=== PATIENT | male | born 1995 | race Caucasian/White ===

== ENCOUNTER 2018-04-30 16:10 | Emergency (ER) | payer BC ==
[2018-04-30 17:08] LABS: Absolute Lymphocytes (CBC) 3.3 K/uL (0.7-4.9); Absolute Monocytes 0.9 K/uL (0.1-1.3); Absolute Neutrophil 5.9 K/uL (1.8-8.0); Basophils % 0.5 % (0-1.3); Eosinophils % 1.2 % (0-4.4); Hematocrit 44.3 % (39.6-49.0); MCH 31.4 pg (27.0-35.0); MCV 90.7 fL (80-100); MPV 9.7 fL (7.6-11.3); Monocytes % 8.7 % (3.3-12.3); RBC Red Blood Cell Count 4.89 M/uL (4.33-5.43)
[2018-04-30 17:20] LABS: Potassium 3.1 mmol/L (3.5-5.1)
[2018-04-30] MEDS ORDERED: POTASSIUM 25 MEQ EFFERV TAB ONE (17:36)
[2018-04-30] MEDS ORDERED: NA CHLORIDE 0.9% 1,000 ML ONE (17:36)
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
[2018-04-30] MEDS ORDERED: FENTANYL CITR 100 MCG/2 ML ONE (18:01)
[2018-04-30] MEDS ORDERED: ONDANSETRON 4 MG (ODT) TAB ONE (18:01)
== END 2018-04-30 18:57 | disposition home or self-care (01) ==
LOC: ER 16:10
DX: S20.211A Contusion of right front wall of thorax, initial encounter (principal); W20.8XXA Other cause of strike by thrown, projected or falling object, initial encounter; Y93.89 Activity, other specified; Y92.9 Unspecified place or not applicable
CPT/HCPCS: 36415; 70450; 71260; 72125; 74177; 80048; 85025; 86850; 86900; 86901; 96372; 99283; J3010; J7030; Q9967

== ENCOUNTER 2019-02-02 07:17 | Emergency (ER) | payer BC ==
[2019-02-02] MEDS ORDERED: ALBUTEROL 2.5 MG/3 ML NEB SOL ONE (07:48)
[2019-02-02] MEDS ORDERED: IPRATROPIUM BROM 0.5MG/2.5ML ONE (07:48)
--- NOTE | 2019-02-02 08:00 | ER ---
Nurse's Notes [facility] Name: Andre Quinones Age: 23 yrs Sex: Male : 1995 Arrival Date: 02/02/2019 Time: 07:20 Bed X-Ray Private MD: Charlee Rea K Diagnosis: Bronchitis, not specified as acute or chronic Presentation: 02/02 07:32 Presenting complaint: Patient states: cough since Monday, difficulty breathing since iw , worse last night, fever on Monday. Transition of care: patient was not received from another setting of care. Onset of symptoms was January 29, 2019. Risk Assessment: Do you want to hurt yourself or someone else? Patient reports no desire to harm self or others. Initial Sepsis Screen: Does the patient meet any 2 criteria? No. Patient's initial sepsis screen is negative. Does the patient have a suspected source of infection? No. Patient's initial sepsis screen is negative. Care prior to arrival: None. 07:32 Method Of Arrival: Ambulatory iw 07:32 Acuity: MADY 4 iw Triage Assessment: 07:45 Respiratory: the patient has mild shortness of breath. iw 02/03 07:40 Respiratory: Onset: The symptoms/episode began/occurred. iw Historical: - Allergies: 02/02 07:35 NKA; iw - Home Meds: 07:35 Albuterol Inhl daily [Active]; iw - PMHx: 07:35 Asthma; iw - PSHx: 07:35 Shoulder; Foot; Tonsillectomy; iw - Immunization history:: Adult Immunizations up to date. - Social history:: Smoking status: Patient/guardian denies using tobacco. - Ebola Screening: : Patient negative for fever greater than or equal to 101.5 degrees Fahrenheit, and additional compatible Ebola Virus Disease symptoms Patient denies exposure to infectious person Patient denies travel to an Ebola-affected area in the 21 days before illness onset No symptoms or risks identified at this time. Screenin:47 Abuse screen: Denies threats or abuse. Nutritional screening: No deficits noted. em Tuberculosis screening: No symptoms or risk factors identified. Fall Risk None identified. Assessment: 07:45 General: Appears in no apparent distress. comfortable, Behavior is calm, cooperative, em Reports fever for 1-2 days. Pain: Complains of pain in chest Pain currently is 5 out of 10 on a pain scale. Neuro: Level of Consciousness is awake, alert, obeys commands, Oriented to person, place, time, situation. Cardiovascular: Capillary refill < 3 seconds Patient's skin is warm and dry. Rhythm is regular. Respiratory: Reports shortness of breath on exertion pain with cough Airway is patent Respiratory effort is even, unlabored, Respiratory pattern is regular, symmetrical, Breath sounds with wheezes in left posterior lower lobe. Derm: Skin is intact, is healthy with good turgor, Skin is pink, warm \T\ dry. Musculoskeletal: Capillary refill < 3 seconds, Range of motion: intact in all extremities. 08:00 Reassessment: Patient appears in no apparent distress at this time. i agree with above iw assessment by Cesar Manzano LVN. Vital Signs: 07:33 BP 142 / 81; Pulse 90; Resp 18 S; Pulse Ox 96% on R/A; Weight 90.72 kg; Height 5 ft. 11 iw in. (180.34 cm); Pain 5/10; 08:09 BP 133 / 65; Pulse 103; Resp 20; Pulse Ox 100% on R/A; em 07:33 Body Mass Index 27.89 (90.72 kg, 180.34 cm) iw ED Course: 07:20 Patient arrived in ED. mr 07:20 Charlee Rea MD is Private Physician. mr 07:20 Linda Riley F[facility]-C [facility] kb 07:20 Nestor Pagan MD is Attending Physician. kb 07:31 Cesar Manzano LVN is Primary Nurse. em 07:33 Triage completed. iw 07:33 Arm band placed on. iw 07:42 Chest Pa And Lat (2 Views) XRAY In Process Unspecified. EDMS 07:47 Patient has correct armband on for positive identification. Bed in low position. Call em light in reach. Pulse ox on. NIBP on. 08:08 No provider procedures requiring assistance completed. Patient did not have IV access em during this emergency room visit. Administered Medications: 07:47 Drug: DuoNeb (3:1) (2.5 mg - 0.5 mg) 3 ml Route: Nebulizer; em 08:03 Follow up: Response: No adverse reaction; Marked relief of symptoms em 08:03 Drug: Zithromax 500 mg Route: PO; em 08:10 Follow up: Response: Medication administered at discharge. em 08:03 Drug: predniSONE 40 mg Route: PO; em 08:10 Follow up: Response: Medication administered at discharge. em Outcome: 07:59 Discharge ordered by . daja 08:08 Discharged to home ambulatory. em 08:08 Condition: good 08:08 Discharge instructions given to patient, Instructed on discharge instructions, follow up and referral plans. medication usage, Demonstrated understanding of instructions, follow-up care, medications, Prescriptions given X 1. 08:11 Patient left the ED. em Signatures: Dispatcher [employer] EDMS Linda Riley, ENGINEER SECOND ASSISTANT-C ENGINEER SECOND ASSISTANT-Lesa Bocanegra mr Cesar Manzano, TELEGRAPH DISPATCHER TELEGRAPH DISPATCHER Chichi Hickman, RN RN iw
--- NOTE | 2019-02-02 08:01 | EDPHYS ---
Physician Documentation [facility] Name: Andre Quinones Age: 23 yrs Sex: Male : 1995 Arrival Date: 02/02/2019 Time: 07:20 Bed X-Ray Private MD: Charlee Rea K ED Physician Nestor Pagan HPI: 02/02 08:12 This 23 yrs old Male presents to ER via Ambulatory with complaints of kb Breathing Difficulty. 08:12 The patient or guardian reports cough, that is intermittent, described as moderate, kb with no sputum, difficulty breathing, flu symptoms, low-grade fever. Onset: The symptoms/episode began/occurred 5 day(s) ago. Severity of symptoms: At their worst the symptoms were moderate, in the emergency department the symptoms are unchanged. Modifying factors: The symptoms are alleviated by nothing, the symptoms are aggravated by nothing. Associated signs and symptoms: Pertinent positives: chest pain, Pertinent negatives: diarrhea, ear ache, fever, nausea, rhinorrhea, sore throat, vomiting. The patient has experienced similar episodes in the past. The patient has not recently seen a physician. Pt reports cough, congestion, shortness of breath for 5 days that has gotten worse. States he had fever on the second day, but not since then. Has history of pneumonia and asthma. Historical: - Allergies: 07:35 NKA; iw - Home Meds: 07:35 Albuterol Inhl daily [Active]; iw - PMHx: 07:35 Asthma; iw - PSHx: 07:35 Shoulder; Foot; Tonsillectomy; iw - Immunization history:: Adult Immunizations up to date. - Social history:: Smoking status: Patient/guardian denies using tobacco. - Ebola Screening: : Patient negative for fever greater than or equal to 101.5 degrees Fahrenheit, and additional compatible Ebola Virus Disease symptoms Patient denies exposure to infectious person Patient denies travel to an Ebola-affected area in the 21 days before illness onset No symptoms or risks identified at this time. ROS: 08:09 ENT: Negative for injury, pain, and discharge, Neck: Negative for injury, pain, and kb swelling, Cardiovascular: Negative for chest pain, palpitations, and edema, Abdomen/GI: Negative for abdominal pain, nausea, vomiting, diarrhea, and constipation, Back: Negative for injury and pain, MS/Extremity: Negative for injury and deformity, Skin: Negative for injury, rash, and discoloration, Neuro: Negative for headache, weakness, numbness, tingling, and seizure. 08:09 Constitutional: Positive for fever, malaise, Negative for body aches, chills, fatigue, poor PO intake, weight loss. 08:09 Respiratory: Positive for cough, with no reported sputum, dyspnea on exertion, shortness of breath, Negative for hemoptysis, orthopnea, pleurisy, wheezing. Exam: 08:09 Constitutional: This is a well developed, well nourished patient who is awake, alert, kb and in no acute distress. Head/Face: Normocephalic, atraumatic. ENT: Nares patent. No nasal discharge, no septal abnormalities noted. Tympanic membranes are normal and external auditory canals are clear. Oropharynx with no redness, swelling, or masses, exudates, or evidence of obstruction, uvula midline. Mucous membranes moist. Neck: Trachea midline, no thyromegaly or masses palpated, and no cervical lymphadenopathy. Supple, full range of motion without nuchal rigidity, or vertebral point tenderness. No Meningismus. Chest/axilla: Normal chest wall appearance and motion. Nontender with no deformity. No lesions are appreciated. Cardiovascular: Regular rate and rhythm with a normal S1 and S2. No gallops, murmurs, or rubs. Normal PMI, no JVD. No pulse deficits. Respiratory: Lungs have equal breath sounds bilaterally, clear to auscultation and percussion. No rales, rhonchi or wheezes noted. No increased work of breathing, no retractions or nasal flaring. Abdomen/GI: Soft, non-tender, with normal bowel sounds. No distension or tympany. No guarding or rebound. No evidence of tenderness throughout. Back: No spinal tenderness. No costovertebral tenderness. Full range of motion. Skin: Warm, dry with normal turgor. Normal color with no rashes, no lesions, and no evidence of cellulitis. MS/ Extremity: Pulses equal, no cyanosis. Neurovascular intact. Full, normal range of motion. Neuro: Awake and alert, GCS 15, oriented to person, place, time, and situation. Cranial nerves II-XII grossly intact. Motor strength 5/5 in all extremities. Sensory grossly intact. Cerebellar exam normal. Normal gait. Vital Signs: 07:33 BP 142 / 81; Pulse 90; Resp 18 S; Pulse Ox 96% on R/A; Weight 90.72 kg; Height 5 ft. 11 iw in. (180.34 cm); Pain 5/10; 08:09 BP 133 / 65; Pulse 103; Resp 20; Pulse Ox 100% on R/A; em 07:33 Body Mass Index 27.89 (90.72 kg, 180.34 cm) iw MDM: 07:20 Patient medically screened. kb 08:09 Data reviewed: vital signs, nurses notes. Data interpreted: Pulse oximetry: on room air kb is 96 %. Interpretation: normal. Test interpretation: by ED physician or midlevel provider: plain radiologic studies, negative . Counseling: I had a detailed discussion with the patient and/or guardian regarding: the historical points, exam findings, and any diagnostic results supporting the discharge/admit diagnosis, lab results, radiology results, the need for outpatient follow up, a family practitioner, to return to the emergency department if symptoms worsen or persist or if there are any questions or concerns that arise at home. 02/02 07:21 Order name: Flu; Complete Time: 08:08 kb 02/02 07:21 Order name: Chest Pa And Lat (2 Views) XRAY kb Administered Medications: 07:47 Drug: DuoNeb (3:1) (2.5 mg - 0.5 mg) 3 ml Route: Nebulizer; em 08:03 Follow up: Response: No adverse reaction; Marked relief of symptoms em 08:03 Drug: Zithromax 500 mg Route: PO; em 08:10 Follow up: Response: Medication administered at discharge. em 08:03 Drug: predniSONE 40 mg Route: PO; em 08:10 Follow up: Response: Medication administered at discharge. em Disposition: 19 07:59 Discharged to Home. Impression: Bronchitis, not specified as acute or chronic. - Condition is Stable. - Discharge Instructions: Acute Bronchitis, [id number]. - Prescriptions for Prednisone 20 mg Oral Tablet - take 1 tablet by ORAL route once daily for 5 days; 5 tablet. - Medication Reconciliation Form, Thank You Letter, Antibiotic Education, Prescription Opioid Use form. - Follow up: Emergency Department; When: As needed; Reason: Worsening of condition. Follow up: Private Physician; When: 2 - 3 days; Reason: Recheck today's complaints, Continuance of care, Re-evaluation by your physician. - Notes: Take zithromax previously prescribed and use albuterol inhaler as needed Addendum: 02/04/2019 09:37 Co-signature as Attending Physician, Nestor Pagan MD I agree with the assessment and c eduardo plan of care. Signatures: Dispatcher [employer] Linda Corey, WATER RESOURCES PROJECT MANAGER-C WATER RESOURCES PROJECT MANAGER-CkNestor Childress MD MD cha Munoz, Edgar, TOOL GRINDER TOOL GRINDER em Chichi Bowie, RN RN iw Corrections: (The following items were deleted from the chart) 02/02 08:11 07:59 02/02/2019 07:59 Discharged to Home. Impression: Bronchitis, not specified as em acute or chronic. Condition is Stable. Forms are Medication Reconciliation Form, Thank You Letter, Antibiotic Education, Prescription Opioid Use. Follow up: Emergency Department; When: As needed; Reason: Worsening of condition. Follow up: Private Physician; When: 2 - 3 days; Reason: Recheck today's complaints, Continuance of care, Re-evaluation by your physician. kb
[2019-02-02] MEDS ORDERED: AZITHROMYCIN 250 MG TAB ONE (08:11)
[2019-02-02] MEDS ORDERED: predniSONE 20 MG TAB ONE (08:11)
--- NOTE | 2019-02-02 08:29 | RAD REPORT ---
EXAM DESCRIPTION: RAD - Chest Pa And Lat (2 Views) - 02/02/2019 7:41 am CLINICAL HISTORY: Persistent cough, shortness of breath COMPARISON: None. TECHNIQUE: PA and lateral views of the chest were obtained. FINDINGS: The lungs are clear. Heart size is normal and central vasculature is within normal limit s. No pleural effusion or pneumothorax seen. No acute bony finding noted. No aortic abnormality. IMPRESSION: No acute cardiopulmonary process.
== END 2019-02-02 08:11 | disposition home or self-care (01) ==
LOC: ER 07:17
DX: J40 Bronchitis, not specified as acute or chronic (principal)
CPT/HCPCS: 71046; 87804; 94640; 99284; J7512

== ENCOUNTER 2019-02-06 10:07 | Emergency (ER) | payer BC ==
[2019-02-06 11:26] LABS: Absolute Lymphocytes (CBC) 3.5 K/uL (0.7-4.9); Basophils % 0.4 % (0-1.3); Hematocrit 41.8 % (39.6-49.0); Lymphocytes % 27.6 % (15.3-44.8); MPV 9.2 fL (7.6-11.3); Monocytes % 8.3 % (3.3-12.3); RBC Red Blood Cell Count 4.61 M/uL (4.33-5.43)
[2019-02-06 11:35] LABS: ALT/SGPT 42 U/L (12-78); AST/SGOT 12 U/L (15-37); Albumin 3.9 g/dL (3.4-5.0); Alkaline Phosphatase 82 U/L (45-117); BUN Blood Urea Nitrogen 17 mg/dL (7-18); Bicarbonate 27 mmol/L (21-32); Bilirubin Direct < 0.1 mg/dL (0-0.2); Bilirubin Total 0.3 mg/dL (0.2-1.0); Glucose Level 97 mg/dL (74-106); Magnesium 1.9 mg/dL (1.8-2.4); Potassium 3.3 mmol/L (3.5-5.1); Protein, Total 6.9 g/dL (6.4-8.2); Sodium Level 142 mmol/L (136-145)
--- NOTE | 2019-02-06 12:14 | ER ---
Nurse's Notes [facility] Name: Andre Quinones Age: 23 yrs Sex: Male : 1995 Arrival Date: 02/06/2019 Time: 10:08 Bed 8 Private MD: Charlee Rea K Diagnosis: Palpitations Presentation: 02/06 10:14 Presenting complaint: Patient states: Chest pressure and fluttering sensation in chest aj with radiation to left arm. Recent upper respiratory infection, with recent use of albuterol. Care prior to arrival: None. 10:14 Method Of Arrival: Ambulatory aj 10:14 Acuity: MADY 3 aj 10:18 Transition of care: patient was not received from another setting of care. Onset of hb symptoms was February 06, 2019. Risk Assessment: Do you want to hurt yourself or someone else? Patient reports no desire to harm self or others. Initial Sepsis Screen: Does the patient meet any 2 criteria? No. Patient's initial sepsis screen is negative. Does the patient have a suspected source of infection? No. Patient's initial sepsis screen is negative. Triage Assessment: 10:15 General: Appears in no apparent distress. comfortable, Behavior is calm, cooperative, aj appropriate for age. Pain: Complains of pain in chest and left arm. Neuro: Level of Consciousness is awake, alert, obeys commands, Oriented to person, place, time, situation, Appropriate for age. Cardiovascular: Reports chest pain, shortness of breath, Capillary refill < 3 seconds in bilateral Patient's skin is warm and dry. Respiratory: Reports shortness of breath Airway is patent Respiratory effort is even, unlabored, Respiratory pattern is regular, symmetrical. Derm: Skin is intact, is healthy with good turgor, Skin is pink, warm \T\ dry. normal. Historical: - Allergies: 10:15 NKA; aj - Home Meds: 10:15 Albuterol Inhl daily [Active]; aj - PMHx: 10:15 Asthma; aj - Immunization history:: Adult Immunizations up to date. - Social history:: Smoking status: Patient/guardian denies using tobacco. - Ebola Screening: : No symptoms or risks identified at this time. Screenin:26 Abuse screen: Denies threats or abuse. Denies injuries from another. Nutritional hb screening: No deficits noted. Tuberculosis screening: No symptoms or risk factors identified. Fall Risk None identified. Assessment: 11:01 General: Appears in no apparent distress. Behavior is calm, cooperative. Pain: hb Complains of pain in chest to mid back Pain began 4 hours ago. Neuro: Level of Consciousness is awake, alert, obeys commands, Oriented to person, place, time, situation. Cardiovascular: Capillary refill < 3 seconds Patient's skin is warm and dry. Rhythm is regular. Respiratory: Airway is patent Respiratory effort is even, unlabored, Respiratory pattern is regular, symmetrical. GI: No signs and/or symptoms were reported involving the gastrointestinal system. : No signs and/or symptoms were reported regarding the genitourinary system. EENT: No signs and/or symptoms were reported regarding the EENT system. Derm: Skin is intact, is healthy with good turgor, Skin is pink, warm \T\ dry. Musculoskeletal: No signs and/or symptoms reported regarding the musculoskeletal system. 12:00 Reassessment: Patient appears in no apparent distress at this time. Patient and/or hb family updated on plan of care and expected duration. Pain level reassessed. Patient is alert, oriented x 3, equal unlabored respirations, skin warm/dry/pink. Vital Signs: 10:15 BP 151 / 86; Pulse 89; Resp 24; Temp 98.1; Pulse Ox 97% on R/A; Weight 99.79 kg; Height aj 5 ft. 11 in. (180.34 cm); 10:59 BP 127 / 81; Pulse 69; Resp 18; Pulse Ox 98% on R/A; Pain 4/10; hb 12:00 BP 125 / 76; Pulse 60; Resp 14; Pulse Ox 100% on R/A; hb 10:15 Body Mass Index 30.68 (99.79 kg, 180.34 cm) aj ED Course: 10:08 Patient arrived in ED. as 10:08 Charlee Rea MD is Private Physician. as 10:14 Triage completed. aj 10:15 Arm band placed on left wrist. Patient placed in an exam room. aj 10:17 Quinton Louise PA is PHCP. jr8 10:17 Donald Romero MD is Attending Physician. jr8 10:25 Roslyn Conde RN is Primary Nurse. hb 10:26 Patient has correct armband on for positive identification. Placed in gown. Call light hb in reach. child monitor on. Pulse ox on. NIBP on. 10:26 Patient maintains SpO2 saturation greater than 95% on room air. hb 11:00 Inserted saline lock: 20 gauge in right antecubital area, using aseptic technique. hb Blood collected. 11:34 Holter monitor was applied and instructions were given to the patient. at1 12:13 Kevin Celaya MD is Referral Physician. jr8 12:26 No provider procedures requiring assistance completed. IV discontinued, intact, hb bleeding controlled, No redness/swelling at site. Pressure dressing applied. Administered Medications: 12:25 Drug: Potassium Chloride 20 mEq Route: PO; hb 12:26 Follow up: Response: Medication administered at discharge. hb Outcome: 12:13 Discharge ordered by . jr8 12:26 Discharged to home ambulatory. hb 12:26 Condition: stable 12:26 Discharge instructions given to patient, Instructed on discharge instructions, follow up and referral plans. Demonstrated understanding of instructions, follow-up care. 12:27 Patient left the ED. hb Signatures: Marika Momin, RN RN Charlotte Bunch Josh, PA PA jr8 Marika Johns, upholstery cleaner EKG Tat1 Roslyn Conde RN RN hb
--- NOTE | 2019-02-06 12:14 | EDPHYS ---
Physician Documentation [facility] Name: Andre Quinones Age: 23 yrs Sex: Male : 1995 Arrival Date: 02/06/2019 Time: 10:08 Bed 8 Private MD: Charlee Rea K ED Physician Donald Romero HPI: 02/06 11:00 This 23 yrs old Male presents to ER via Ambulatory with complaints of jr8 Palpitations, Shortness Of Breath. 11:00 The patient presents with a history of irregular heart beat, heart skipping beats. jr8 Context: The symptoms occur at rest. Onset: The symptoms/episode began/occurred acutely, this morning. Duration: The patient or guardian reports a single episode, that lasted 50 second(s). Modifying factors: The symptoms are aggravated by nothing. The symptoms are alleviated by nothing. Associated signs and symptoms: Pertinent positives: SOB. Severity of symptoms: At their worst the symptoms were moderate in the emergency department the symptoms are unchanged. The patient has not experienced similar symptoms in the past. The patient has not recently seen a physician. Patient stated that he has occasional single palpitation but this morning had a prolonged palpitation feeling that lasted almost a minute. [place] very sleepy and short of breath . Historical: - Allergies: 10:15 NKA; aj - Home Meds: 10:15 Albuterol Inhl daily [Active]; aj - PMHx: 10:15 Asthma; aj - Immunization history:: Adult Immunizations up to date. - Social history:: Smoking status: Patient/guardian denies using tobacco. - Ebola Screening: : No symptoms or risks identified at this time. ROS: 11:00 Eyes: Negative for injury, pain, redness, and discharge, ENT: Negative for injury, jr8 pain, and discharge, Neck: Negative for injury, pain, and swelling, Abdomen/GI: Negative for abdominal pain, nausea, vomiting, diarrhea, and constipation, Back: Negative for injury and pain, MS/Extremity: Negative for injury and deformity, Skin: Negative for injury, rash, and discoloration, Neuro: Negative for headache, weakness, numbness, tingling, and seizure. 11:00 Cardiovascular: Positive for palpitations. 11:00 Respiratory: Positive for shortness of breath. Exam: 11:00 Eyes: Pupils equal round and reactive to light, extra-ocular motions intact. Lids and jr8 lashes normal. Conjunctiva and sclera are non-icteric and not injected. Cornea within normal limits. Periorbital areas with no swelling, redness, or edema. ENT: Nares patent. No nasal discharge, no septal abnormalities noted. Tympanic membranes are normal and external auditory canals are clear. Oropharynx with no redness, swelling, or masses, exudates, or evidence of obstruction, uvula midline. Mucous membranes moist. Neck: Trachea midline, no thyromegaly or masses palpated, and no cervical lymphadenopathy. Supple, full range of motion without nuchal rigidity, or vertebral point tenderness. No Meningismus. Cardiovascular: Regular rate and rhythm with a normal S1 and S2. No gallops, murmurs, or rubs. Normal PMI, no JVD. No pulse deficits. Respiratory: Lungs have equal breath sounds bilaterally, clear to auscultation and percussion. No rales, rhonchi or wheezes noted. No increased work of breathing, no retractions or nasal flaring. Abdomen/GI: Soft, non-tender, with normal bowel sounds. No distension or tympany. No guarding or rebound. No evidence of tenderness throughout. Back: No spinal tenderness. No costovertebral tenderness. Full range of motion. Skin: Warm, dry with normal turgor. Normal color with no rashes, no lesions, and no evidence of cellulitis. MS/ Extremity: Pulses equal, no cyanosis. Neurovascular intact. Full, normal range of motion. Neuro: Awake and alert, GCS 15, oriented to person, place, time, and situation. Cranial nerves II-XII grossly intact. Motor strength 5/5 in all extremities. Sensory grossly intact. Cerebellar exam normal. Normal gait. 11:00 ECG was reviewed by the Attending Physician. Vital Signs: 10:15 BP 151 / 86; Pulse 89; Resp 24; Temp 98.1; Pulse Ox 97% on R/A; Weight 99.79 kg; Height aj 5 ft. 11 in. (180.34 cm); 10:59 BP 127 / 81; Pulse 69; Resp 18; Pulse Ox 98% on R/A; Pain 4/10; hb 12:00 BP 125 / 76; Pulse 60; Resp 14; Pulse Ox 100% on R/A; hb 10:15 Body Mass Index 30.68 (99.79 kg, 180.34 cm) aj MDM: 10:17 Patient medically screened. jr8 12:11 Data reviewed: vital signs, nurses notes, old medical records, lab test result(s), EKG, jr8 and as a result, I will discharge patient. Data interpreted: electrical maintenance mechanic: rate is 67 beats/min, rhythm is normal sinus rhythm, with no ectopy, Interpretation: normal rate, normal rhythm, Pulse oximetry: on room air is 98 %. Interpretation: normal. Counseling: I had a detailed discussion with the patient and/or guardian regarding: the historical points, exam findings, and any diagnostic results supporting the discharge/admit diagnosis, lab results, radiology results, the need for outpatient follow up, a product safety professional, to return to the emergency department if symptoms worsen or persist or if there are any questions or concerns that arise at home. ED course: Patient to wear Holter monitor and to return after 24 hours. Recommend cardiology f/u as well. If worse to come back for further evaluation . 02/06 10:42 Order name: Basic Metabolic Panel; Complete Time: 11:43 02/06 10:42 Order name: CBC with Diff; Complete Time: 11:36 02/06 10:42 Order name: EKG; Complete Time: 10:43 02/06 10:42 Order name: LFT's; Complete Time: 11:43 02/06 10:42 Order name: Magnesium; Complete Time: 11:43 02/06 10:42 Order name: Cardiac monitoring; Complete Time: 11:02/06 10:42 Order name: EKG - Nurse/Tech; Complete Time: 10:42 02/06 10:42 Order name: IV Saline Lock; Complete Time: 11:02/06 10:42 Order name: Labs collected and sent; Complete Time: 11:02/06 10:42 Order name: O2 Per Protocol; Complete Time: :02/06 10:42 Order name: O2 Sat Monitoring; Complete Time: :02/06 10:42 Order name: Holter Monitor (ORDER); Complete Time: 10:45 EC:00 Rate is 71 beats/min. Rhythm is regular, Normal Sinus Rhythm. QRS [place] is Normal. [place] jr8 interval is normal at 178 msec. QRS interval is normal at 102 msec. QT interval is normal at 417 msec. No Q waves. T waves are Inverted in lead V1. No ST changes noted. Clinical impression: Normal ECG. Interpreted by me. Reviewed by me. Administered Medications: 12:25 Drug: Potassium Chloride 20 mEq Route: PO; hb 12:26 Follow up: Response: Medication administered at discharge. Disposition: 17:15 Co-signature as Attending Physician, Donald Romero MD I agree with the assessment and kdr plan of care. Disposition: 02/06/19 12:13 Discharged to Home. Impression: Palpitations. - Condition is Stable. - Discharge Instructions: Holter Monitoring, Palpitations. - Medication Reconciliation Form, Thank You Letter, Antibiotic Education, Prescription Opioid Use form. - Follow up: Kevin Celaya MD; When: 5 - 6 days; Reason: Recheck today's complaints, Continuance of care, Re-evaluation by your physician. - Problem is new. - Symptoms have improved. Signatures: Dispatcher [employer] EDSC Marika Momin, RN RN Donald Romero MD MD [facility] Quinton Louise PA PA jr8 Roslyn Conde RN RN Corrections: (The following items were deleted from the chart) 12: 12:13 02/06/2019 12:13 Discharged to Home. Impression: Palpitations. Condition is hb Stable. Forms are Medication Reconciliation Form, Thank You Letter, Antibiotic Education, Prescription Opioid Use. Follow up: Kevin Celaya; When: 5 - 6 days; Reason: Recheck today's complaints, Continuance of care, Re-evaluation by your physician. Problem is new. Symptoms have improved. jr8
--- NOTE | 2019-02-06 12:24 | EKG ---
Test Date: 2019-02-06 Test Time: 10:24:50 Manager Star: KRYSTYNA MEASUREMENT RESULTS: Intervals: Rate: 71 AK: 178 QRSD: 102 QT: 384 QTc: 417 [place]: P: 31 AK: 178 QRS: 73 T: 44 INTERPRETIVE STATEMENTS: Normal sinus rhythm Normal ECG No previous ECG available for comparison Electronically Signed On 02-06-19 12:23:34 CDT by Kevin Celaya
[2019-02-06] MEDS ORDERED: POTASSIUM CL SA 10 MEQ TAB PO ONE (12:35)
== END 2019-02-06 12:27 | disposition home or self-care (01) ==
LOC: ER 10:07
DX: R00.2 Palpitations (principal); J45.909 Unspecified asthma, uncomplicated
CPT/HCPCS: 36415; 80048; 80076; 83735; 85025; 93005; 93225; 93226; 99285

== ENCOUNTER 2019-11-03 00:16 | Emergency (ER) | payer BC ==
--- OUTSIDE RECORDS SUMMARY | 2019-11-03 00:18 | XMS REPORT ---
:1995 [facility] Address [address] [place] [address] Dr. Luu [address] [place] [id number] Care Team Providers Name Role Phone Unavailable Unavailable Unavailable Problems This patient has no known problems. Allergies, Adverse Reactions, Alerts This patient has no known allergies or adverse reactions. Medications This patient has no known medications.
[2019-11-03] MEDS ORDERED: IPRATROPIUM BROM 0.5MG/2.5ML ONE (00:39)
[2019-11-03] MEDS ORDERED: HYDROCODONE/CHLORPHEN 5 ML/OSYR ONE (00:39)
[2019-11-03] MEDS ORDERED: ALBUTEROL 2.5 MG/3 ML NEB SOL ONE (00:39)
[2019-11-03] MEDS ORDERED: ONDANSETRON 4 MG/2 ML VIAL ONE (00:39)
[2019-11-03 00:46] LABS: Absolute Lymphocytes (CBC) 3.1 K/uL (0.7-4.9); Basophils % 1.1 % (0-1.3); Hematocrit 44.6 % (39.6-49.0); Lymphocytes % 33.3 % (15.3-44.8); MPV 9.1 fL (7.6-11.3); RBC Red Blood Cell Count 5.02 M/uL (4.33-5.43)
[2019-11-03] MEDS ORDERED: NA CHLORIDE 0.9% 1,000 ML ONE (00:51)
[2019-11-03] MEDS ORDERED: dexAMETHasone 10 MG/ML VIAL ONE (00:51)
[2019-11-03] MEDS ORDERED: DIPHENHYDRAMINE 50 MG/ML VIAL ONE (00:51)
[2019-11-03] MEDS ORDERED: FAMOTIDINE 20 MG/2 ML VIAL IV ONE (00:51)
[2019-11-03 01:11] LABS: ALT/SGPT 46 U/L (12-78); AST/SGOT 13 U/L (15-37); Albumin 4.5 g/dL (3.4-5.0); Alkaline Phosphatase 90 U/L (45-117); BUN Blood Urea Nitrogen 19 mg/dL (7-18); Bicarbonate 23 mmol/L (21-32); Bilirubin Direct 0.1 mg/dL (0-0.2); Bilirubin Total 0.4 mg/dL (0.2-1.0); Glucose Level 100 mg/dL (74-106); Magnesium 1.8 mg/dL (1.8-2.4); NT PRO-BNP 18 pg/mL (<125); Potassium 3.1 mmol/L (3.5-5.1); Protein, Total 7.8 g/dL (6.4-8.2); Sodium Level 140 mmol/L (136-145); Troponin (Emerg Dept Use Only) < 0.02 ng/mL (0.0-0.045)
--- NOTE | 2019-11-03 01:49 | EDPHYS ---
Physician Documentation [facility] Name: Andre Quinones Age: 24 yrs Sex: Male : 1995 Arrival Date: 11/03/2019 Time: 00:17 Bed 16 Private MD: ED Physician Nestor Pagan HPI: 11/02 00:38 This 24 yrs old Male presents to ER via Wheelchair with complaints of pm1 Shortness Of Breath. 00:38 The patient has shortness of breath with light activity, and the patient has a history pm1 of asthma. Onset: The symptoms/episode began/occurred 2 day(s) ago. The patient's shortness of breath is aggravated by light activity, is alleviated by nothing. Associated signs and symptoms: Pertinent positives: chest pain, non-productive cough, diaphoresis, dizziness, Pertinent negatives: fever, vomiting. Severity of symptoms: in the emergency department the symptoms are worse. The patient has not recently seen a physician. Travel to [place], [place] 1 week ago to event with 200 people present. Historical: - Allergies: 00:40 NKA; rr5 - Home Meds: 00:40 Albuterol Inhl daily [Active]; rr5 - PMHx: 00:40 Asthma; rr5 - PSHx: 00:40 Tonsillectomy; rr5 - Immunization history:: Adult Immunizations up to date. - Social history:: Smoking status: unknown. ROS: 00:59 Constitutional: Negative for fever, chills, and weight loss. pm1 00:59 Abdomen/GI: Negative for abdominal pain, nausea, vomiting, diarrhea, and constipation, Back: Negative for injury and pain, MS/Extremity: Negative for injury and deformity, Skin: Negative for injury, rash, and discoloration, Neuro: Negative for headache, weakness, numbness, tingling, and seizure. 00:59 ENT: Positive for sore throat, Negative for drainage from ear(s), ear pain, difficulty swallowing, difficulty handling secretions, hoarseness. 00:59 Cardiovascular: Positive for chest pain, Negative for edema, palpitations. 00:59 Respiratory: Positive for cough, shortness of breath, Negative for wheezing. Exam: 00:59 Constitutional: This is a well developed, well nourished patient who is awake, alert, pm1 and in no acute distress. Head/Face: Normocephalic, atraumatic. 00:59 Neck: Trachea midline, no thyromegaly or masses palpated, and no cervical lymphadenopathy. Supple, full range of motion without nuchal rigidity, or vertebral point tenderness. No Meningismus. Chest/axilla: Normal chest wall appearance and motion. Nontender with no deformity. No lesions are appreciated. Cardiovascular: Regular rate and rhythm with a normal S1 and S2. No gallops, murmurs, or rubs. Normal PMI, no JVD. No pulse deficits. Respiratory: Lungs have equal breath sounds bilaterally, clear to auscultation and percussion. No rales, rhonchi or wheezes noted. No increased work of breathing, no retractions or nasal flaring. Abdomen/GI: Soft, non-tender, with normal bowel sounds. No distension or tympany. No guarding or rebound. No evidence of tenderness throughout. Back: No spinal tenderness. No costovertebral tenderness. Full range of motion. Skin: Warm, dry with normal turgor. Normal color with no rashes, no lesions, and no evidence of cellulitis. MS/ Extremity: Pulses equal, no cyanosis. Neurovascular intact. Full, normal range of motion. 00:59 ENT: External ear(s): are unremarkable, Ear canal(s): are normal, TM's: are normal, Posterior pharynx: Airway: normal, no evidence of obstruction, patent, Tonsils: with erythema, erythema, that is mild, peritonsillar mass, is not appreciated. 00:59 Neuro: Orientation: is normal, Motor: is normal, moves all fours. 00:59 Psych: Behavior/mood is anxious, Affect is animated. Vital Signs: 00:30 BP 138 / 88; Pulse 84; Resp 20; Temp 98.4; Pulse Ox 100% ; rr5 00:45 BP 151 / 91; Pulse 95; Resp 28; Pulse Ox 98% on 15% Nebulizer Mask; rr5 01:30 BP 119 / 67; Pulse 68; Resp 22; Pulse Ox 98% ; rr5 02:00 BP 131 / 58; Pulse 76; Resp 19; Temp 98.4; Pulse Ox 99% ; rr5 MDM: 00:18 Patient medically screened. pm1 01:48 Data reviewed: vital signs. pm1 01:48 Data interpreted: Pulse oximetry: on room air is 98 %. Interpretation: normal. pm1 01:48 Counseling: I had a detailed discussion with the patient and/or guardian regarding: the pm1 historical points, exam findings, and any diagnostic results supporting the discharge/admit diagnosis, lab results, radiology results, the need for outpatient follow up, to return to the emergency department if symptoms worsen or persist or if there are any questions or concerns that arise at home. 11/02 00:25 Order name: Basic Metabolic Panel; Complete Time: :15 pm11/02 00:25 Order name: CBC with Diff; Complete Time: :09 pm11/02 00:25 Order name: LFT's; Complete Time: : pm11/02 00:25 Order name: Magnesium; Complete Time: : pm11/02 00:25 Order name: NT PRO-BNP; Complete Time: : pm11/02 00:25 Order name: PT-INR; Complete Time: :47 pm11/02 00:25 Order name: Troponin (emerg Dept Use Only); Complete Time: :15 pm11/02 00:25 Order name: XRAY Chest (1 view) pm11/02 00:25 Order name: D-Dimer; Complete Time: :47 pm11/02 00:25 Order name: Flu; Complete Time: 01:39 pm11/02 00:25 Order name: Strep; Complete Time: 01:39 pm11/02 00:25 Order name: EKG; Complete Time: 00:26 pm11/02 00:25 Order name: Cardiac monitoring; Complete Time: 00:30 pm11/02 00:25 Order name: EKG - Nurse/Tech; Complete Time: 00:30 pm11/02 00:25 Order name: IV Saline Lock; Complete Time: 00:30 pm11/02 00:25 Order name: Labs collected and sent; Complete Time: 00: pm11/02 00:25 Order name: O2 Per Protocol; Complete Time: 00: pm11/02 00:25 Order name: O2 Sat Monitoring; Complete Time: 00: pm EC:28 Rate is 74 beats/min. Rhythm is regular, Normal Sinus Rhythm with No ectopy. No Q pm1 waves. T waves are Normal. No ST changes noted. Clinical impression: Normal ECG. Administered Medications: 00:38 Drug: Zofran (Ondansetron) 4 mg Route: IVP; Site: right antecubital; rr5 01:00 Follow up: Response: Adverse reaction, Physician notified rr5 00:40 Drug: Tussionex Pennkinetic ER 5 ml Route: PO; rr5 01:40 Follow up: Response: No adverse reaction rr5 00:47 Drug: DuoNeb (3:1) (2.5 mg - 0.5 mg) 3 ml Route: Nebulizer; rr5 01:40 Follow up: Response: No adverse reaction rr5 00:50 Drug: Decadron - Dexamethasone 10 mg Route: IVP; Site: right antecubital; rr5 02:00 Follow up: Response: No adverse reaction rr5 00:50 Drug: NS 0.9% 1000 ml Route: IV; Rate: 1 bolus; Site: right antecubital; rr5 02:09 Follow up: Response: No adverse reaction; IV Status: Completed infusion; IV Intake: rr5 1000ml 01:39 Drug: Benadryl 25 mg Route: IVP; Site: right antecubital; rr5 02:08 Follow up: Response: No adverse reaction; Marked relief of symptoms rr5 Disposition: 18:01 Co-signature as Attending Physician, Nestor Pagan MD I agree with the assessment and tracy plan of care. Disposition: 11/03/19 01:49 Discharged to Home. Impression: Streptococcal pharyngitis. - Condition is Stable. - Discharge Instructions: Strep Throat. - Prescriptions for Amoxicillin 500 mg Oral Capsule - take 1 capsule by ORAL route every 8 hours for 10 days; 30 tablet. - Medication Reconciliation Form, Thank You Letter, Antibiotic Education, Prescription Opioid Use form. - Follow up: Emergency Department; When: As needed; Reason: Worsening of condition. Follow up: Private Physician; When: 2 - 3 days; Reason: Recheck today's complaints, Continuance of care, Re-evaluation by your physician. - Problem is new. - Symptoms have improved. Signatures: Dispatcher [employer] Nestor Babb MD MD cha Marinas, Patrick, NP [employer]K TRUCK DRIVER pm1 Stanley Fletcher RN RN rr5 Corrections: (The following items were deleted from the chart) 02:10 01:49 11/03/2019 01:49 Discharged to Home. Impression: Streptococcal pharyngitis. rr5 Condition is Stable. Forms are Medication Reconciliation Form, Thank You Letter, Antibiotic Education, Prescription Opioid Use. Follow up: Emergency Department; When: As needed; Reason: Worsening of condition. Follow up: Private Physician; When: 2 - 3 days; Reason: Recheck today's complaints, Continuance of care, Re-evaluation by your physician. Problem is new. Symptoms have improved. pm1
--- NOTE | 2019-11-03 01:49 | ER ---
Nurse's Notes [facility] Name: Andre Quinones Age: 24 yrs Sex: Male : 1995 Arrival Date: 11/03/2019 Time: 00:17 Bed 16 Private MD: Diagnosis: Streptococcal pharyngitis Presentation: 11/02 00:19 Chief complaint: Patient states: Patient was at work, when he became short of breath, lp1 felt chest tightness; States feeling dizzy, continued feeling of unable to catch breath; History of asthma. Coronavirus screen: Patient reports a subjective fever or greater than 100.4F, or cough, or shortness of breath, or difficulty breathing. Surgical mask placed on patient. Patient moved to private room, placed in contact and droplet isolation with eye protection until further assessment. Ebola Screen: No symptoms or risks identified at this time. Risk Assessment: Do you want to hurt yourself or someone else? Patient reports no desire to harm self or others. 00:19 Method Of Arrival: Wheelchair lp1 00:19 Acuity: MADY 3 lp1 00:30 Initial Sepsis Screen: Does the patient meet any 2 criteria? No. Patient's initial rr5 sepsis screen is negative. Does the patient have a suspected source of infection? No. Patient's initial sepsis screen is negative. 00:30 Onset of symptoms was November 03, 2019. rr5 Triage Assessment: 00:30 Respiratory: the patient has mild shortness of breath. rr5 Historical: - Allergies: 00:40 NKA; rr5 - Home Meds: 00:40 Albuterol Inhl daily [Active]; rr5 - PMHx: 00:40 Asthma; rr5 - PSHx: 00:40 Tonsillectomy; rr5 - Immunization history:: Adult Immunizations up to date. - Social history:: Smoking status: unknown. Screenin:35 Abuse screen: Denies threats or abuse. Denies injuries from another. Nutritional rr5 screening: No deficits noted. Tuberculosis screening: No symptoms or risk factors identified. Fall Risk IV access (20 points). Total Jarvis Fall Scale indicates No Risk (0-24 pts). Assessment: 00:30 General: Appears in no apparent distress. uncomfortable, Behavior is cooperative, rr5 appropriate for age. Pain: Complains of pain in chest Pain does not radiate. Pain Quality of pain is described as pressure, Pain began suddenly, Is intermittent. Neuro: Level of Consciousness is awake, alert, obeys commands, Oriented to person, place, time, situation, Appropriate for age. 00:30 Cardiovascular: Capillary refill < 3 seconds Patient's skin is warm and dry. Rhythm is rr5 sinus rhythm. Respiratory: Reports shortness of breath Airway is patent Respiratory effort is even, unlabored, Respiratory pattern is regular, symmetrical, tachypnea Breath sounds are clear bilaterally. GI: No signs and/or symptoms were reported involving the gastrointestinal system. : No signs and/or symptoms were reported regarding the genitourinary system. EENT: No signs and/or symptoms were reported regarding the EENT system. Derm: Skin is intact, is healthy with good turgor, Skin temperature is warm. Musculoskeletal: Capillary refill < 3 seconds. 00:45 Reassessment: complaining of throat is getting tight. ED provider aware assess the rr5 patient and order made. 01:15 Reassessment: Patient appears in no apparent distress at this time. stills feels the rr5 same ED provider aware with order made and carried out. 01:58 Reassessment: Patient appears in no apparent distress at this time. Patient is alert, rr5 oriented x 3, equal unlabored respirations, skin warm/dry/pink. discharge instruction given and explained without complaints made. Patient states feeling better. Patient states symptoms have improved. Vital Signs: 00:30 BP 138 / 88; Pulse 84; Resp 20; Temp 98.4; Pulse Ox 100% ; rr5 00:45 BP 151 / 91; Pulse 95; Resp 28; Pulse Ox 98% on 15% Nebulizer Mask; rr5 01:30 BP 119 / 67; Pulse 68; Resp 22; Pulse Ox 98% ; rr5 02:00 BP 131 / 58; Pulse 76; Resp 19; Temp 98.4; Pulse Ox 99% ; rr5 ED Course: 00:17 Patient arrived in ED. ds1 00:18 Derrick Jolly NP is PHCP. pm1 00:18 Nestor Pagan MD is Attending Physician. pm1 00:25 Triage completed. lp1 00:25 Inserted saline lock: 18 gauge in right antecubital area, using aseptic technique. rr5 ,using aseptic technique. inserted by ovidio Blood collected. 00:30 Fletcher, Stanley, ROMINA is Primary Nurse. rr5 00:30 Arm band placed on left wrist. rr5 00:31 EKG done, by ED staff, reviewed by Derrick Jolly NP. rr5 00:31 Flu and/or RSV swab sent to lab. Strep swab sent to lab. rr5 00:31 Patient has correct armband on for positive identification. Bed in low position. Call rr5 light in reach. alarm security or surveillance monitor on. Pulse ox on. NIBP on. 00:49 XRAY Chest (1 view) In Process Unspecified. EDMS 02:05 No provider procedures requiring assistance completed. IV discontinued, intact, rr5 bleeding controlled, No redness/swelling at site. Pressure dressing applied. Administered Medications: 00:38 Drug: Zofran (Ondansetron) 4 mg Route: IVP; Site: right antecubital; rr5 01:00 Follow up: Response: Adverse reaction, Physician notified rr5 00:40 Drug: Tussionex Pennkinetic ER 5 ml Route: PO; rr5 01:40 Follow up: Response: No adverse reaction rr5 00:47 Drug: DuoNeb (3:1) (2.5 mg - 0.5 mg) 3 ml Route: Nebulizer; rr5 01:40 Follow up: Response: No adverse reaction rr5 00:50 Drug: Decadron - Dexamethasone 10 mg Route: IVP; Site: right antecubital; rr5 02:00 Follow up: Response: No adverse reaction rr5 00:50 Drug: NS 0.9% 1000 ml Route: IV; Rate: 1 bolus; Site: right antecubital; rr5 02:09 Follow up: Response: No adverse reaction; IV Status: Completed infusion; IV Intake: rr5 1000ml 01:39 Drug: Benadryl 25 mg Route: IVP; Site: right antecubital; rr5 02:08 Follow up: Response: No adverse reaction; Marked relief of symptoms rr5 Intake: 02:09 IV: 1000ml; Total: 1000ml. rr5 Outcome: 01:49 Discharge ordered by . pm1 02:05 Discharged to home ambulatory. rr5 02:05 Condition: stable 02:05 Discharge instructions given to patient, Instructed on discharge instructions, follow up and referral plans. medication usage, Demonstrated understanding of instructions, follow-up care, medications, Prescriptions given X 1. 02:10 Patient left the ED. rr5 Signatures: Dispatcher [employer] EDFL Dorene Seymour ds1 Lisha Aparicio RN RN lp1 Derrick Jolly, LIVESTOCK DEALER LIVESTOCK DEALER pm1 Stanley Fletcher RN RN rr5
[2019-11-03 02:23] VITALS: TEMP 98.4
[2019-11-03 02:27] VITALS: BP 131/58; O2SAT 99
--- NOTE | 2019-11-03 08:58 | EKG ---
Test Date: 2019-11-03 Test Time: 00:24:08 Change Control Coordinator: RR MEASUREMENT RESULTS: Intervals: Rate: 74 DE: 182 QRSD: 96 QT: 408 QTc: 452 [place]: P: 34 DE: 182 QRS: 76 T: 56 INTERPRETIVE STATEMENTS: Normal sinus rhythm Normal ECG Compared to ECG 02/06/2019 10:24:50 No significant changes Electronically Signed On 11-03-19 08:57:33 CDT by Clifton Gutierrez
--- NOTE | 2019-11-03 09:39 | RAD REPORT ---
EXAM DESCRIPTION: RAD - Chest Single View - 11/03/2019 12:49 am CLINICAL HISTORY: Cough;SOB COMPARISON: January 2019 examination TECHNIQUE: AP portable chest image was obtained 11/03/2019 12:49 am . FINDINGS: Lungs are clear. Heart and vasculature are normal. No measurable pleural effusion and no p neumothorax. No acute bony abnormality seen. No acute aortic findings suspected. No significant quesada e from comparison. IMPRESSION: No acute cardiopulmonary process.
== END 2019-11-03 02:10 | disposition home or self-care (01) ==
LOC: ER 00:16
DX: J02.0 Streptococcal pharyngitis (principal); J45.909 Unspecified asthma, uncomplicated
CPT/HCPCS: 96361; 93005; 85025; 80048; 36415; 83735; 85610; 85379; 80076; 87081; 84484; 83880; 87804 ×2; 71045; 94640; 96375; 96374; 99285; J1200; J1100; J7030; J2405

== ENCOUNTER 2023-07-05 23:59 | Emergency (ER) | payer BC, OTHER ==
--- OUTSIDE RECORDS SUMMARY | 2023-07-06 00:03 | XMS REPORT | Continuity of Care Document ---
:1995 Author Organization [facility] t Address [address] [place] [id number] Care Team Providers Name Role Phone Jin Attending Clinician Unavailable Dean Fischer MD Attending Clinician DEAN FISCHER Attending Clinician Unavailable MARIA TERESA GRIFFITHS Attending Clinician Unavailable Jin Admitting Clinician Unavailable Payers Payer Name Policy Type Policy Number Effective Date Expiration Date S j[place] [id number] 2021 00:00:00 OF [place] (PPO[place] [facility] - [id number] 2015 00:00:00 OUT OF STATE Problems Condition Condition Condition Status Onset Resolution Last Treating Co mments Source Name Details Category Date Date Treatment Clinician Date Dyspnea at Dyspnea at Problem Active 2021-08 S [facility] 0-27 [facility] Chest pain Chest Pain Problem Active 2021-08 S weeny on on 0-27 Communi breathing Breathing 00:00: ty [facility] Tachypnea Tachypnea Problem Active 2021-08 Swe fernando 0-27 Communi 00:00: ty [facility] Allergies, Adverse Reactions, Alerts Allergy Allergy Status Severity Reaction(s) Onset Inactive Treating Comm ents Source Name Type Date Date Clinician NO KNOWN Drug Active [facility] ALLERGIE Class [facility]y of S [facility] Medications Ordered Filled Start Stop Current Ordering Indication Dosage Frequency Signature Comments Components Source Medication Medication Date Date Medication? Clinician (SIG) Name Name ketorolac ketorolac 2022-1 No Q6H ketorolac [place] 60 mg/2 mL 60 mg/2 mL 0-27 60 mg/2 mL Communi intramuscul intramuscul 09:34: intramuscu ty ar ar [facility] solutionInj solutionInj solutionIn l ect 1 mL ect 1 mL ject 1 mL Cl inics every 6 every 6 every 6 hours by hours by hours by intramuscul intramuscul intramuscu ar route. ar route. lar route. albuterol albuterol No albuterol [place] sulfate HFA sulfate HFA sulfate Communi 90 90 HFA 90 ty mcg/actuati mcg/actuati mcg/actuat Hospita on aerosol on aerosol ion l inhaler inhaler aerosol Clinic s inhaler ketorolac ketorolac No 1mL Q6H ketorolac [place] 60 mg/2 mL 60 mg/2 mL 60 mg/2 mL Communi intramuscul intramuscul intramuscu ty ar solution ar solution lar H ospita Inject 1 mL Inject 1 mL solution l every 6 every 6 Inject 1 Clini cs hours by hours by mL every 6 intramuscul intramuscul hours by ar route. ar route. intramuscu lar route. prednisone prednisone No prednisone [place] 20 mg 20 mg 20 mg Communi tablet tablet tablet ty Hospita l Clinics albuterol albuterol No albuterol [place] sulfate HFA sulfate HFA sulfate Communi 90 90 HFA 90 ty mcg/actuati mcg/actuati mcg/actuat Hospita on aerosol on aerosol ion l inhaler inhaler aerosol Clinic s inhaler metronidazo metronidazo No 4 metronidaz [place] le 500 mg le 500 mg ole 500 mg Communi tablet Take tablet Take tablet ty 4 tablets 4 tablets Take 4 Hos quang by oral by oral tablets by l route as route as oral route C linics directed directed as for 1 day. for 1 day. directed for 1 day. Vital Signs Vital Name Observation Time Observation Value Comments Source BP Diastolic 2022-07-21 00:00:00 69 mm[Hg] [facility] Height 2022-07-21 00:00:00 71 [in_i] [facility] BMI (Body Mass 2022-07-21 00:00:00 32 kg/m2 [facility] s BP Systolic 2022-07-21 00:00:00 120 mm[Hg] [facility] Body Weight 2022-07-21 00:00:00 3673.6 [oz_av] [facility] s BP Diastolic 2022-06-09 00:00:00 77 mm[Hg] [facility] Height 2022-06-09 00:00:00 71 [in_i] [facility] BMI (Body Mass 2022-06-09 00:00:00 31.2 kg/m2 Counts Include [facility] BP Systolic 2022-06-09 00:00:00 122 mm[Hg] [facility] Body Weight 2022-06-09 00:00:00 3584 [oz_av] [facility] Procedures Procedure Date / Time Performed Performing Clinician Sour e CT, chest, w/ contrast 2022-06-09 00:00:00 [facility] Plan of Care Planned Activity Planned Date Details Comments Source Diagnostic Test Pending 2022-07-21 HIV (1+2) Ab [facility] 00:00:00 [facility] [[facility] = HIV (1+2) Ab screen, serum] Diagnostic Test Pending 2022-07-21 RPR (rapid plasma Counts Include [facility] 00:00:00 reagin), serum [facility] [code = RPR (rapid plasma reagin), serum] Diagnostic Test Pending 2022-07-21 CT + NG DNA, PCR, Counts Include [facility] 00:00:00 urine [code = CT Hospital Cl inics + NG DNA, PCR, urine] Diagnostic Test Pending 2022-07-21 CBC w/ auto diff Counts Include [facility] 00:00:00 [code = CBC w/ Hospital Clin ics auto diff] Diagnostic Test Pending 2022-07-21 CMP, serum or [facility] 00:00:00 plasma [code = Hospital Clin ics CMP, serum or plasma] Diagnostic Test Pending 2022-07-21 HbA1c (hemoglobin Counts Include [facility] 00:00:00 A1c), blood [code Hospital C linics = HbA1c (hemoglobin A1c), blood] Diagnostic Test Pending 2022-07-21 lipid panel, [facility] 00:00:00 serum [code = Hospital Clini cs lipid panel, serum] Diagnostic Test Pending 2022-07-21 TSH + free T4, [facility] 00:00:00 serum [code = TSH Hospital C linics + free T4, serum] Diagnostic Test Pending 2022-07-21 vitamin D, [facility] 00:00:00 25-hydroxy, Hospital Clinic s total, serum [code = vitamin D, 25-hydroxy, total, serum] Diagnostic Test Pending 2022-07-21 trichomonas, wet Counts Include [facility] 00:00:00 mount, urine Hospital Clinic s [code = trichomonas, wet mount, urine] Instructions [facility] Encounters Start End Encounter Admission Attending Care Care Encounter Source Date/Time Date/Time Type Type Clinicians Facility Department ID 2022-09-20 2022-09-20 Outpatient L_Pena [facility] [id number] [place] 00:00:00 00:00:00 0207 [facility] i ty [facility]osp[facility] 2022-09-09 2022-09-09 Outpatient L_Pena [facility] [id number] [place] 00:00:00 00:00:00 0127 [facility] 2022-08-24 2022-08-24 Outpatient L_Pena [facility] [id number] [place] 00:00:00 00:00:00 0111 [facility] i ty [facility] Clin[facility] 2022-07-21 2022-07-21 Outpatient L_Pena [facility] [id number] [place] 00:00:00 00:00:00 1208 Commun i ty Hosp[facility] Clinics 2022-07-21 2022-07-21 Lisha [facility] [place] - Boaz [id number] [place] 00:00:00 00:00:00 Yasir Aparicio APRN, MSN, [facility]: [address], [address], [place] [address] , Ph. 2022-06-09 2022-06-09 Outpatient L_Pena [facility] [id number] [place] 00:00:00 00:00:00 1207 Commun i ty Hospita [facility] Clinics 2022-06-09 2022-06-09 Outpatient L_Markus [facility] [id number] [place] 00:00:00 00:00:00 1027 Commun i ty Hosp[facility] Clinics 2022-06-09 [facility]22[facility] [place] [facility] [place] 00:00:00 00:00:00 Yasir Aparicio APRN, MSN, Hospital - ty [facility] [address], [address], [place] [address] , Ph. 2022-06-06 2022-06-06 Outpatient L_Markus [facility] [id number] [place] 00:00:00 00:00:00 1024 Commun i ty Hospita [facility] Clinics 2022-06-03 2022-06-03 [facility] [id number] [place] 00:00:00 00:00:00 1021 Commun i ty Hospita [facility] Clinics 2020-03-13 2020-03-13 [facility] [id number] 00:00:00 00:00:00 Dean Brenner [id number] [place] [id number] Professio [id number] [address] 2020-01-14 2020-01-14 Outpatient R AMADO [facility] [id number] Univers 14:00:00 14:00:00 DEAN [facility] 2019-12-13 2019-12-13 [facility] [id number] Univers 09:40:00 09:40:00 DEAN [facility] 2019-12-13 2019-12-13 Telemedici [facility] [id number] 08:40:29 09:00:29 ne Visit Dean Brenner [id number] [place] [id number] Professio [id number] [address] 2019-11-05 2019-12-11 Telemedici [facility] [id number] 07:50:35 16:51:44 ne Visit Dean Brenner [id number] [place] [id number] Frannie [id number] [address] 2019-11-14 2019-11-14 [facility] [id number] [facility] 09:20:00 09:20:00 MARIA TERESA castro [facility] 2019-11-08 2019-11-08 [facility] [id number] Univers 09:00:00 09:00:00 DEAN castro [facility] 2019-11-05 2019-11-05 [facility] [id number] Univers 10:40:00 10:40:00 DEAN castro [facility] Results This patient has no known results.
--- NOTE | 2023-07-06 00:13 | EDPHYS ---
Physician Documentation 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 Came in to get prophylactic antibiotic.. Historical: - Allergies: 00:15 NKA; cm10 - PMHx: 00:15 Asthma; cm10 - Immunization history:: Adult Immunizations unknown. - Social history:: Smoking status: Patient denies any tobacco usage or history of. ROS: 00:31 Constitutional: Negative for fever, chills, and weight loss, kb 00:31 All other systems are negative, Exam: 00:31 Constitutional: This is a well developed, well nourished patient who is awake, alert, kb and in no acute distress. Head/Face: Normocephalic, atraumatic. ENT: Moist Mucous membranes Respiratory: Respirations even and unlabored. No increased work of breathing. Talking in full sentences Skin: Warm, dry with normal turgor. Normal color. MS/ Extremity: Pulses equal, no cyanosis. Neurovascular intact. Full, normal range of motion. Neuro: Awake and alert, GCS 15, oriented to person, place, time, and situation. Moves all extremities. Normal gait. Vital Signs: 00:19 BP 115 / 72; Pulse 86; Resp 18; Temp 98.6; Pulse Ox 97% ; cm10 MDM: 00:05 Patient medically screened. kb 00:31 Data reviewed: vital signs, nurses notes. Counseling: I had a detailed discussion with kb the patient and/or guardian regarding the historical points, exam findings, and any diagnostic results supporting the discharge/admit diagnosis, the need for outpatient follow up, a family practitioner, to return to the emergency department if symptoms worsen or persist or if there are any questions or concerns that arise at home. Administered Medications: 00:20 Drug: Ciprofloxacin PO 1 grams PO once Route: PO; cm10 00:20 Follow up: Response: No adverse reaction cm10 Disposition: 03:16 Co-signature as Attending Physician, Lexa Mcdowell MD I agree with the assessment sp4 and plan of care. I reviewed the patient's care provided by Advanced Practice Provider \T\ agree w/ the diagnosis \T\ care plan. I personally saw the pt \T\ performed a substantive portion of the visit, incldng all aspects of the (History/Exam/Medical Decision Making). Disposition Summary: 07/06/23 00:13 Discharge Ordered Notes: Location: Home kb Condition: Stable kb Diagnosis - Exposure to bacterial meningitis kb Followup: kb - With: Emergency Department - When: As needed - Reason: Worsening of condition Followup: kb - With: Private Physician - When: 2 - 3 days - Reason: Recheck today's complaints, Continuance of care, Re-evaluation by your physician Forms: - Medication Reconciliation Form kb - Thank You Letter kb - Antibiotic Education kb - Prescription Opioid Use kb - Patient Portal Instructions kb - Leadership Thank You Letter kb Signatures: Linda Riley, ELECTRONICS PROCESSOR-C ELECTRONICS PROCESSOR-Lexa Parks MD MD sp4 Akua Dove RN RN cm10
--- NOTE | 2023-07-06 00:20 | ER ---
Nurse's Notes [facility] Name: Andre Quinones Age: 27 yrs Sex: Male : 1995 Arrival Date: 07/05/2023 Time: 23:59 Bed Waiting [facility] MD: Diagnosis: Exposure to bacterial meningitis Presentation: 07/06 00:14 Chief complaint: Patient states: Presenting to the ED for exposure to bacterial cm10 meningitis. Coronavirus screen: Vaccine status: Patient reports being unvaccinated. Ebola Screen: Patient denies travel to an Ebola-affected area in the 21 days before illness onset. No symptoms or risks identified at this time. Initial Sepsis Screen: Does the patient meet any 2 criteria? No. Patient's initial sepsis screen is negative. Does the patient have a suspected source of infection? No. Patient's initial sepsis screen is negative. Risk Assessment: Do you want to hurt yourself or someone else? Patient reports no desire to harm self or others. Onset of symptoms was July 06, 2023. 00:14 Method Of Arrival: Ambulatory cm10 00:14 Acuity: MADY 4 cm10 Triage Assessment: 00:15 General: Appears in no apparent distress. comfortable, Behavior is calm, cooperative. cm10 Pain: Denies pain. Neuro: No deficits noted. Level of Consciousness is awake, alert, obeys commands, Oriented to person, place, time, situation. Historical: - Allergies: 00:15 NKA; cm10 - PMHx: 00:15 Asthma; cm10 - Immunization history:: Adult Immunizations unknown. - Social history:: Smoking status: Patient denies any tobacco usage or history of. Screenin:16 [facility] ED Fall Risk Assessment (Adult) History of falling in the last 3 months, cm10 including since admission No falls in past 3 months (0 pts) Confusion or Disorientation No (0 pts) Intoxicated or Sedated No (0 pts) Impaired Gait No (0 pts) Mobility Assist Device Used No (0 pt) Altered Elimination No (0 pt) Score/Fall Risk Level 0 - 2 = Low Risk Oriented to surroundings, Maintained a safe environment. Abuse screen: Denies threats or abuse. Denies injuries from another. Nutritional screening: No deficits noted. Tuberculosis screening: No symptoms or risk factors identified. Vital Signs: 00:19 BP 115 / 72; Pulse 86; Resp 18; Temp 98.6; Pulse Ox 97% ; cm10 ED Course: 00:05 Patient arrived in ED. [email or web address] 00:05 Linda Riley FNP-C is [facility] daja 00:05 Lexa Mcdowell MD is Attending Physician. kb 00:15 Triage completed. cm10 00:16 Arm band placed on Patient placed in waiting room. cm10 00:16 Patient has correct armband on for positive identification. Provided Education on: ER cm10 process and procedures. . 00:17 No provider procedures requiring assistance completed. Patient did not have IV access cm10 during this emergency room visit. Administered Medications: 00:20 Drug: Ciprofloxacin PO 1 grams PO once Route: PO; cm10 00:20 Follow up: Response: No adverse reaction cm10 Medication: 00:16 VIS not applicable for this client. cm10 Outcome: 00:13 Discharge ordered by . kb 00:17 Discharged to home ambulatory, cm10 00:17 Condition: good 00:17 Discharge instructions given to patient, Instructed on discharge instructions, follow up and referral plans. Demonstrated understanding of instructions, follow-up care, 00:20 Patient left the ED. cm10 Signatures: Linda Riley FNP-C FNP-Kenzie Arroyo [email or web address] Akua Dove, RN RN cm10
[2023-07-06] MEDS ORDERED: CIPROFLOXACIN HCL 500 MG TAB ONE (00:32)
[2023-07-06 00:47] VITALS: BP 115/72; TEMP 98.6; O2SAT 97
== END 2023-07-06 00:20 | disposition home or self-care (01) ==
LOC: ER 23:59
DX: Z20.811 Contact with and (suspected) exposure to meningococcus (principal)
CPT/HCPCS: 99283